=== PATIENT | female | born 1995 | race Caucasian/White ===

== ENCOUNTER 2016-07-27 21:29 | Emergency (ER) | payer OTHER ==
[~2016-07-27] VITALS: Ht 149.9 cm; Wt 43.5 kg
[2016-07-27 22:01] VITALS: BP 112/68
--- NOTE | 2016-07-27 22:44 | NUR ---
Patient ambulated to bed 06.
--- NOTE | 2016-07-27 23:04 | NUR ---
21 Y/O F W/C/O CHEST PAIN WHICH IS TRIGGER BY STRESS X 1 MTH ON AND OFF. DENIES ANY SOB OR CHEST PAIN PRESENT AT THE MOMENT. PER PT SHE HAD CHEST PAIN WHEN SHE ARRIVED HERE BUT IS NOT LONGER PRESENT . PT ON [employer], VSS. ER MD AT BEDSIDE EVALUATING PT.
--- NOTE | 2016-07-27 23:15 | NUR ---
PT RESTING IN BED, FAMILY AT BEDSIDE, ON MONITOR. NO S/S OF DISTRESS NOTED AT THIS TIME.
[2016-07-27 23:38] VITALS: BP 103/68
--- NOTE | 2016-07-27 23:38 | NUR ---
Patient discharged with v/s stable. Written and verbal after care instructions given and explained. Patient alert, oriented and verbalized understanding of instructions. Ambulatory with steady gait. All questions addressed prior to discharge. ID band removed. Patient advised to follow up with PMD NEXT WK OR RETURN TO ER IF CONDITION WORSENS. Rx of ATIVAN given. Patient educated on indication of medication including possible reaction and side effects. Opportunity to ask questions provided and answered.
== END 2016-07-27 23:38 | disposition home or self-care (01) ==
LOC: MED 21:29
DX: R07.89 Other chest pain (principal)